=== PATIENT | female | born 1960 | race Caucasian/White ===

== ENCOUNTER → 2019-05-14 17:14 | Outpatient (CLI) | payer OTHER, SELFPAY ==
--- NOTE | 2019-05-14 17:17 | MM_ITS ---
PROCEDURE: MM DIG SCREENING MAMM BI W/CAD Patient Age:58Y CLINICAL INDICATION: Routine SCREENING MAMMOGRAM but no hormones but no new complaints. Noncontributory family history. The COMPARISON: MM MOBILE MAMMO DIGITAL SCREEN W CAD MIRIAM from 09/05/2012 MM MOBILE MAMMO DIGITAL SCREEN W CAD [facility]AM[facility]-DX MIRIAM W ADD VIEWS [facility] DIG MAMM-DX MIRIAM W/AVWS W/CAD from 11/08/2016 TECHNIQUE: Standard CC and MLO images were obtained. R2 CAD reviewed.. Additional CC and MLO nipple profile views bilateral included FINDINGS: . A moderate residual breast tissue density, most evident towards superior breast bilaterally. No significant appearing change since previous study when reviewing all images. Areas of minor density on one view dissipate on another and seem to be compatible and in keeping with previous study a Dense clustered calcification previously noted at the deep upper-outer quadrant left breast, has shown progressive benign dense calcifications-benign pattern. NotOf concern. No new calcifications of significant concern either breast. A few tiny punctate calcifications scattered bilaterally are benign IMPRESSION: No new findings of significant concern. Bilateral follow-up 1 year recommended . Areas of moderately dense heterogeneous breast tissue superior breast bilaterally again noted. Overall stable BI-RAD Category: 2 Benign Finding(s) FOLLOW-UP: 1YR 1 Year Follow-up (A letter has been sent to the patient regarding results of the study.) Dictated by: Zane Field MD 05/17/2019 13:17 Electronically signed by Zane Field MD in [place] 05/17/2019 13:17
== END ==
PROVIDERS: PCP Nurse Practitioner Family; Visit Provider Nurse Practitioner
DX: Z12.31 Encounter for screening mammogram for malignant neoplasm of breast (principal)
CPT/HCPCS: 77067

== ENCOUNTER → 2020-05-15 10:47 | Outpatient (CLI) | payer OTHER, SELFPAY ==
--- NOTE | 2020-05-15 10:50 | MM_ITS ---
PROCEDURE: MM DIG SCREENING MAMM BI W/CAD Digital Breast Tomosynthesis Included CLINICAL INDICATION: SCREENING There is no personal or family history of breast cancer. COMPARISON: MG DMDBAV DIG MAMM-DX MIRIAM W ADD VIEWS from 05/05/2016 MG DMDBAV DIG MAMM-DX MIRIAM W/AVWS W/CAD from 11/08/2016 MG MM DIG SCREENING MAMM BI W/CAD from 05/14/2019 TECHNIQUE: Standard CC and MLO images and 3D Tomosynthesis was obtained. R2 CAD reviewed. FINDINGS: The breasts are composed primarily of fat with residual glandular elements in the central portions bilaterally. There are few benign-appearing microcalcifications in each breast in addition to the small cluster of calcifications deep central left breast which is stable. There is no suspicious lesion and no suspicious microcalcifications. IMPRESSION: Fibrofatty parenchyma with no suspicious lesions seen BI-RAD Category: 2 Benign Finding(s) FOLLOW-UP: 1YR 1 Year Follow-up (A letter has been sent to the patient regarding results of the study.) Dictated by: Dr. Gucci Spears MD 05/15/2020 13:19 Dr. Gucci Spears MD in [place] 05/15/2020 13:19
== END ==
PROVIDERS: PCP Nurse Practitioner Family; Visit Provider Nurse Practitioner
DX: Z12.31 Encounter for screening mammogram for malignant neoplasm of breast (principal)
CPT/HCPCS: 77063; 77067

== ENCOUNTER 2021-08-08 14:19 | Emergency (ER) | payer OTHER, SELFPAY ==
[2021-08-08] VITALS (7 sets, daily range): BP systolic 110–163; BP diastolic 52–85; PULSE 77–97; RESP 16; TEMP 36.4–36.9; O2SAT 99–100; BMI 34.2
--- NOTE | 2021-08-08 15:18 | HMH.EDGENADL ---
ED Disposition Clinical Impression: Dental abscess Disposition: Home, Self-Care Condition on Discharge: Good Instructions: DI for Tooth Abscess Additional Instructions: Continue taking clindamycin. Ibuprofen as needed for pain. Contact your dentist tomorrow for further care. Additional instructions for DENTAL PROBLEMS: Return immediately if you have an uncontrollable fever greater than 102 degrees, difficulty breathing or shortness of breath, persistent vomiting, or inability to swallow. Referrals: Marco Antonio Carrera MD [Primary Care Provider] - - Critical Care Critical Care Time: No Attestation: On 08/08/21, the high probability of a clinically significant, sudden or life threatening deterioration of the following system(s) required my full and direct attention, intervention and personal management. The time I documented below is in addition to time spent performing reported procedures but includes the following listed in this critical care notation. Medical Decision Making - Elvis Inquiry Pt receiving controlled substance: No Vital Signs: 08/08/21 14:19 08/08/21 15:00 08/08/21 16:00 Temperature 97.6 F Temperature Source Oral Pulse Rate Pulse Rate [Right] 97 H Respiratory Rate 16 Blood Pressure 132/66 124/68 Blood Pressure [Right Arm] 163/79 H Blood Pressure Mean 88 88 Blood Pressure Mean [Right Arm] 107 Blood Pressure Source Blood Pressure Source [Right Arm] Automatic Cuff Blood Pressure Position Blood Pressure Position [Right Arm] Sitting 02 Sat by Pulse Oximetry 99 Oxygen Delivery Method Room Air 08/08/21 16:01 08/08/21 16:30 08/08/21 17:00 Temperature Temperature Source Pulse Rate 85 77 Pulse Rate [Right] Respiratory Rate Blood Pressure 124/68 110/52 L 116/70 Blood Pressure [Right Arm] Blood Pressure Mean 88 Blood Pressure Mean [Right Arm] Blood Pressure Source Blood Pressure Source [Right Arm] Blood Pressure Position Blood Pressure Position [Right Arm] 02 Sat by Pulse Oximetry 99 99 Oxygen Delivery Method 08/08/21 17:27 Temperature 98.5 F Temperature Source Oral Pulse Rate 78 Pulse Rate [Right] Respiratory Rate 16 Blood Pressure 116/85 Blood Pressure [Right Arm] Blood Pressure Mean Blood Pressure Mean [Right Arm] Blood Pressure Source Automatic Cuff Blood Pressure Source [Right Arm] Blood Pressure Position Sitting Blood Pressure Position [Right Arm] 02 Sat by Pulse Oximetry Oxygen Delivery Method Room Air - Lab Data Lab Results 08/08/21 15:55: WBC 6.9, RBC 3.69 L, Hgb 11.5 L, Hct 33.6 L, MCV 91.0, MCH 31.2, MCHC 34.3, RDW 15.5, Plt Count 226, MPV 8.8, Neut % (Auto) 73.6, Lymph % (Auto) 20.1, Angelina % (Auto) 4.4, Eos % (Auto) 1.1, Baso % (Auto) 0.9, Neut # (Auto) 5.1, Lymph # (Auto) 1.4, Angelina # (Auto) 0.3, Eos # (Auto) 0.1, Baso # (Auto) 0.1 08/08/21 15:55: Sodium 131 L, Potassium 4.5, Chloride 96 L, Carbon Dioxide 21 L, Anion Gap 18.5 H, BUN 22 H, Creatinine 1.10 H, Estimated Creat Clear 90, Estimated GFR 51 L, Est GFR ( Amer) 62, Glucose 111 H, Calcium 9.8 Result diagrams: 08/08/21 15:55 08/08/21 15:55 Orders (Tests/Meds): ED MEDICATIONS Discontinued Medications Generic Name Dose Route Start Last Admin Trade Name Freq PRN Reason Stop Dose Admin Clindamycin Phosphate 900 mg/ 106 mls @ 100 mls/hr 08/08/21 15:25 08/08/21 16:08 Sodium Chloride IV 08/08/21 16:28 100 mls/hr ONCE ONE Administration Ketorolac Tromethamine 30 mg 08/08/21 15:28 08/08/21 16:09 Ketorolac 30mg/Ml Vial IV 08/08/21 15:29 30 mg ONCE ONE Administration General Adult HPI - General Stated complaint: left sided abcess tooth Time Seen by Provider: 08/08/21 15:19 - History of Present Illness HPI narrative: Complains of facial swelling due to abscessed tooth. States that she awakened on Monday with a left mandibular abscessed tooth. Contacted her dentist and was called in a presc
[2021-08-08 16:05] LABS: Basophils # 0.1 K/mm3 (0-0.2); Basophils % 0.9 % (0.1-2.0); Eosinophils # 0.1 K/mm3 (0.0-0.4); Eosinophils % 1.1 % (0.1-12.0); Hematocrit 33.6 % (37.0-47.0); Hemoglobin 11.5 g/dL (12.2-16.2); Lymphocytes # 1.4 K/mm3 (0.7-4.5); Lymphocytes % 20.1 % (10-50); Mean Corpuscular HGB Conc 34.3 g/dL (31.8-35.4); Mean Corpuscular Hemoglobin 31.2 pg (27.0-31.2); Mean Platelet Volume 8.8 fl (7.4-10.4); Monocytes # 0.3 K/mm3 (0.1-1.0); Monocytes % 4.4 % (1.7-9.3); Neutrophils # 5.1 K/mm3 (1.8-7.8); Neutrophils % 73.6 % (37.0-80.0); Platelet Count 226 K/mm3 (142-424); Red Blood Count 3.69 M/mm3 (4.20-5.40); Red Cell Distribution Width 15.5 % (11.5-17.5); White Blood Count 6.9 K/mm3 (4.8-10.8)
[2021-08-08 16:25] LABS: Anion Gap 18.5 mEq/L (5-15); Blood Urea Nitrogen 22 mg/dl (7-17); Calcium 9.8 mg/dl (8.4-10.2); Carbon Dioxide 21 mmol/L (22.0-30.0); Chloride 96 mmol/L (98-107); Creatinine Clearance Estimated 90 mL/min (50-200); Estimated Glomerular Filt Rate 51 ml/min (>60); GFR (African American) 62 ML/MIN (>60); Glucose 111 mg/dl (74-100); Potassium 4.5 mmoL/L (3.5-5.1); Sodium 131 mmol/L (136-145)
== END 2021-08-08 17:28 | disposition home or self-care (01) ==
PROVIDERS: Emergency Provider Emergency Medicine; PCP Family Medicine
DX: K04.7 Periapical abscess without sinus (principal)
CPT/HCPCS: 80048; 85025; 96365; 96376; 99282

== ENCOUNTER → 2022-07-04 13:30 | Outpatient (CLI) | payer OTHER, SELFPAY ==
--- NOTE | 2022-07-04 13:32 | US_ITS ---
FINAL REPORT CLINICAL HISTORY: THYROMEGALY,ELEVATED FINDINGS: THYROID ULTRASOUND The right lobe of the thyroid measures 4.1 x 1.5 x 1.2 cm. The left lobe of the thyroid measures 3.9 x 1.4 x 1.2 cm. The parenchyma shows normal echogenicity. There are multiple subcentimeter TI-RADS 1 cystic nodules in the right lobe of the thyroid. There is a single 2 mm TI-RADS 1 cystic nodule in the left lobe of the thyroid. No dominant mass is seen. IMPRESSION: Multiple small TI-RADS 1 cystic nodules. No follow-up recommended. Reviewed, Interpreted and Dictated by Bam Escobar III, MD Transcribed by Goran Rebolledo Authenticated and [facility]
== END ==
PROVIDERS: PCP Family Medicine; Visit Provider Nurse Practitioner Family
DX: E01.0 Iodine-deficiency related diffuse (endemic) goiter (principal); R79.89 Other specified abnormal findings of blood chemistry
CPT/HCPCS: 76536

== ENCOUNTER 2024-01-30 14:06 | Outpatient (CLI) | payer OTHER, SELFPAY ==
--- NOTE | 2024-01-30 14:11 | MM_ITS ---
PROCEDURE INFORMATION: Exam: MG Bilateral Screening 3D Mammography Exam date and time: 01/30/2024 1:57 PM Age: 63 years old Clinical indication: Screening mammogram. TECHNIQUE: Imaging protocol: Bilateral Screening tomosynthesis and 2D mammography including computer-aided detection (CAD) when performed. COMPARISON: 1. MG MM DIG SCREENING MAMM BI W/CAD 05/15/2020 10:54 AM 2. MG MM DIG SCREENING MAMM BI W/CAD 05/14/2019 5:24 PM 3. MG DMDBAV DIG MAMM-DX MIRIAM W/AVWS W/CAD 11/08/2016 1:03 PM 4. MG DMDBAV DIG MAMM-DX MIRIAM W ADD VIEWS 05/05/2016 1:34 PM FINDINGS: MAMMOGRAPHY: Breast composition: The breast is heterogeneously dense, which may obscure small masses. Mass: None. Architectural distortion: No new or suspicious architectural distortion. Calcifications: No new or suspicious calcifications are present Asymmetric density: No new or suspicious asymmetric density is present Skin thickening: None. Axillary adenopathy: None. IMPRESSION: No mammographic evidence of malignancy. Recommend annual screening mammography unless otherwise clinically indicated. ASSESSMENT: BI-RADS category 1: Negative.
== END 2024-01-30 23:59 | disposition home or self-care (01) ==
LOC: RAD 14:06
PROVIDERS: PCP Nurse Practitioner; Visit Provider Nurse Practitioner
DX: Z12.31 Encounter for screening mammogram for malignant neoplasm of breast (principal)
CPT/HCPCS: 77063; 77067

== ENCOUNTER 2024-11-05 09:03 | Outpatient (CLI) | payer OTHER, SELFPAY ==
--- NOTE | 2024-11-05 09:09 | XR_ITS ---
FINAL REPORT CLINICAL HISTORY: SCREENING COMPARISON: None FINDINGS: Using L1-4, the bone mineral density of the spine is 1.236 g/cm2, corresponding to T-score of 1.7, within normal limits. Using the left hip, the bone mineral density of the femoral neck is 0.702 g/cm2, corresponding to a T-score of -1.3, consistent with osteopenia. Using the right hip, the bone mineral density of the femoral neck is 0.864 g/cm2, corresponding to a T-score of -0.6, within normal limits. FRAX 10 year fracture risk is 0.5% for a hip fracture and 7.3% for a major osteoporotic fracture. NOTE: T-score: Standard deviation compared with peak bone mass of young adult mean. *Following the recommendations of the International Society of Bone densitometry, classification of hip BMD is based on the lower of two T-scores; total hip or femoral neck. IMPRESSION: Normal bone mineral density of the lumbar spine and right hip, with diminished bone mineral density in the left hip consistent with osteopenia. Reviewed, Interpreted and Dictated by Erik Laguerre MD Transcribed by Kenyetta Aguilar Authenticated and . [facility]
== END 2024-11-05 23:59 | disposition home or self-care (01) ==
LOC: RAD 09:04
PROVIDERS: PCP Nurse Practitioner; Visit Provider Nurse Practitioner
DX: M85.852 Other specified disorders of bone density and structure, left thigh (principal); M25.551 Pain in right hip; M54.50 Low back pain, unspecified
CPT/HCPCS: 77080

== ENCOUNTER 2024-11-14 13:09 | Outpatient (CLI) | payer OTHER, SELFPAY ==
--- NOTE | 2024-11-14 13:14 | CT_ITS ---
FINAL REPORT TECHNIQUE: Axial imaging of the pelvis was obtained without contrast.This study was performed with techniques to keep radiation doses as low as reasonably achievable, (ALARA). Individualized dose reduction technique using automated exposure control or adjustment of mA and/or kV according to the patient's size were employed. CLINICAL HISTORY: bilateral hip pain FINDINGS: There is no acute fracture or dislocation. There is moderate bilateral hip joint space narrowing. Osteophytes are seen at the acetabular margins. Femoral heads are located bilaterally. Soft tissues demonstrate no acute abnormality. Sacral ala are intact. IMPRESSION: No acute bony abnormality of the pelvis. Symmetric hip joint space narrowing consistent with osteoarthritis. Reviewed, Interpreted and Dictated by Erik Laguerre MD Transcribed by Genesis Gabriel Authenticated and [facility]
--- NOTE | 2024-11-14 13:14 | CT_ITS ---
FINAL REPORT TECHNIQUE: Axial imaging of the lumbar spine was obtained without contrast. Reformatted images were also obtained and reviewed.This study was performed with techniques to keep radiation doses as low as reasonably achievable, (ALARA). Individualized dose reduction techniques using automated exposure control or adjustment of mA and/or kV according to the patient's size were employed. CLINICAL HISTORY: back pain, no known injury FINDINGS: There is no acute fracture. There is loss of disc space height at all levels. Vacuum disc phenomenon is seen throughout. There is minimal spondylolisthesis of L3 on L4. L1-2: Moderate midline and left paracentral disc protrusion with mild to moderate left canal stenosis. L2-3: Mild diffuse disc bulge with mild bilateral neuroforaminal narrowing. L3-4: Moderate diffuse disc bulge with left posterolateral disc protrusion. There is high-grade left and mild right neuroforaminal narrowing. L4-5: Moderate diffuse disc bulge with bilateral facet hypertrophy and moderate to high-grade right neuroforaminal narrowing. L5-S1: Moderate diffuse disc bulge with right posterolateral disc protrusion. There is high-grade right and mild to moderate left neuroforaminal narrowing. IMPRESSION: Diffuse changes of degenerative disc disease with neuroforaminal narrowing most evident on the right at L4-5 and L5-S1. Minimal spondylolisthesis of L3 on L4, degenerative. Reviewed, Interpreted and Dictated by Erik Laguerre MD Transcribed by Genesis Gabriel Authenticated and . [facility]
== END 2024-11-14 23:59 | disposition home or self-care (01) ==
LOC: RAD 13:11
PROVIDERS: PCP Nurse Practitioner; Visit Provider Nurse Practitioner
DX: M25.551 Pain in right hip (principal); M25.552 Pain in left hip
CPT/HCPCS: 72131; 72192

== ENCOUNTER 2025-05-14 13:26 | Outpatient (CLI) | payer OTHER, SELFPAY ==
--- OUTSIDE RECORDS SUMMARY | 2025-05-14 13:34 | XMS_ITS | Clinical Summary ---
Author Organization [facility] Address [address] [place] [address] Phone Care Team Providers Care Crystal Growing Technician Name Role Phone Jeremias Carrera MD Primary Care Provider [phone] Social History Tobacco Use Types Packs/Day Years Used Date Smoking Tobacco: Never Assessed Comments Unknown Sex and Gender Information Value Date Recorded Sex Assigned at Not on file Legal Sex Female 5:07 AM EDT Gender Identity Not on file Sexual Orientation Not on file Plan of Treatment Health Maintenance Due Date Last Done Comments Annual Wellness Exam 1965 Hepatitis C Screening 1980 DTaP/TDaP/Td (1 - Tdap) 1981 Cervical Cancer Screening 12/13/1983 Pap Smear 12/13/1983 HPV/Pap Cotest 1992 Cologuard 12/13/2007 Colon Cancer Screening 12/13/2007 Colonoscopy 12/13/2007 FIT 12/13/2007 Sigmoidoscopy 12/13/2007 Virtual Colonography 12/13/2007 Pneumococcal Vaccine 50+ (1 of 1 - PCV) 2012 Zoster (1 of 2) 2012 Breast Cancer Screening 03/25/2018 03/25/20 16, 09/05/2012 COVID-19 Vaccine (2024-2 6 season) 2025 Influenza Vaccine (#1) 2025 Hepatitis B Vaccine Aged Out No longe r eligible based on patient's age to complete this topic Meningococcal B Vaccine Aged Out No l onger eligible based on patient's age to complete this topic Procedures Procedure Name Priority Date/Time Associated Diagnosis Comments MM MOBILE MAMMO DIGITAL SCREEN W CAD MIRIAM Routine 03/25/2016 10:34 AM EDT Visit for screening mammogram from Last 3 Months or Most Recently Relevant to Health Maintenance Results * MM MOBILE MAMMO DIGITAL SCREEN W CAD MIRIAM (03/25/2016 10:34 AM EDT) Anatomical Region Laterality Modality Breast Mammography 03/28/2016 10:4 9 AM EDT Impressions 03/28/2016 11:07 AM EDT Incomplete-need additional imaging evaluation ([id number]) ~ RECOMMENDATION: Special view mammogram of the right breast. ~ * The patient with a palpable abnormality, unexplained by breast imaging, should be managed on clinical basis by the attending physician. * Breast imaging has a false negative rate of 15%. * The patient was notified by mail of the results of this examination. *The patient's information was entered into a reminder system with a target due date for the next mammogram. The mammogram was reviewed by a Radiologist and CAD. Narrative 03/28/2016 11:07 AM EDT Procedure:MM MOBILE MAMMO DIGITAL SCREEN W CAD MIRIAM ~ Reason for exam: screening (asymptomatic). ~ MM MOBILE MAMMO DIGITAL SCREEN W CAD MIRIAM Bilateral CC and MLO view(s) were taken. There are scattered fibroglandular densities. There are 1-5 faint, indeterminate, grouped calcifications in the mid lateral right breast, as noted on the CC view. Mammogram of the contralateral breast reveals no evidence of malignancy. No significant change on the left. No change on the left when compared with films dated 09-05-12. ~ Jeremias Carrera MD IM MAMMOGRAPHY ORDERABLES Joanna l Result from Last 3 Months or Most Recently Relevant to Health Maintenance Insurance [facility] PPO Care Teams Crystal Growing Technician Relationship Specialty Start Date End Date Jeremias Carrera MD [address] [place] [address] PCP - General Family Medicine 09/03/12
--- NOTE | 2025-05-14 13:58 | MM_ITS ---
PROCEDURE INFORMATION: Exam: MG Bilateral Screening 3D Mammography Exam date and time: 05/14/2025 1:58 PM Age: 64 years old Clinical indication: Screening. No family history of breast cancer. TECHNIQUE: Imaging protocol: Bilateral Screening tomosynthesis and 2D mammography including computer-aided detection (CAD) when performed. COMPARISON: 1. MG MM DIG SCREENING MAMM BI W/CAD 01/30/2024 1:57 PM 2. MG MM DIG SCREENING MAMM BI W/CAD 05/15/2020 10:54 AM 3. MG MM DIG SCREENING MAMM BI W/CAD 05/14/2019 5:24 PM 4. MG DMDBAV DIG MAMM-DX MIRIAM W/AVWS W/CAD 11/08/2016 1:03 PM FINDINGS: MAMMOGRAPHY: Breast composition: The breasts are heterogeneously dense, which may obscure small masses. Mass: None. Architectural distortion: None. Calcifications: No suspicious calcifications. Asymmetric density: None. Skin thickening: None. Axillary adenopathy: None. IMPRESSION: No mammographic evidence of malignancy. Annual screening is recommended unless otherwise clinically indicated. ASSESSMENT: BI-RADS Category 1: Negative.
== END 2025-05-14 23:59 | disposition home or self-care (01) ==
LOC: RAD 13:27
PROVIDERS: PCP Nurse Practitioner; Visit Provider Nurse Practitioner
DX: Z12.31 Encounter for screening mammogram for malignant neoplasm of breast (principal); R92.333 Mammographic heterogeneous density, bilateral breasts
CPT/HCPCS: 77063; 77067